=== PATIENT | male | born 1985 | race Caucasian/White ===

== ENCOUNTER 2020-04-11 14:34 | Emergency (ER) | payer BC ==
[~2020-04-11] VITALS: Ht 172.7 cm; Wt 77.0 kg
[2020-04-11] MEDS ORDERED: IBUPROFEN 600MG TABLET PO ONE (17:15)
[2020-04-11 17:26] VITALS: BP 134/72
== END 2020-04-11 17:31 | disposition home or self-care (01) ==
LOC: ER 14:34
DX: R51.9 Headache, unspecified (principal); I49.9 Cardiac arrhythmia, unspecified; Z90.49 Acquired absence of other specified parts of digestive tract
CPT/HCPCS: 93005; 99283